=== PATIENT | male | born 1990 | race Caucasian/White ===

== ENCOUNTER 2016-06-07 19:49 | Emergency (ER) | payer OTHER, BC ==
[~2016-06-07] VITALS: Ht 170.2 cm; Wt 57.0 kg
[2016-06-07 19:53] VITALS: Ht 170.2 cm; Wt 57.0 kg
[2016-06-07] MEDS ORDERED: SOD CHLORIDE 0.9% 1,000 ML IV STA (19:54)
[2016-06-07 20:10] VITALS: TEMP 98.2
[2016-06-07 20:41] LABS: BASOPHIL # 0.1 10^3/ul (0.0-0.1); BASOPHILS % 0.3 % (0.0-2.0); EOSINOPHILS # 0.1 10^3/ul (0.0-0.5); EOSINOPHILS % 0.5 % (0.0-7.0); HEMATOCRIT 48.8 % (42.0-52.0); HEMOGLOBIN 16.7 g/dl (14.0-18.0); LYMPHOCYTES # 2.8 10^3/ul (0.8-2.9); MEAN CORPUSCULAR HEMOGLOBIN 32.8 pg (29.0-33.0); MEAN CORPUSCULAR HGB CONC 34.2 g/dl (32.0-37.0); MEAN CORPUSCULAR VOLUME 95.9 fl (82.0-101.0); MEAN PLATELET VOLUME 8.3 fl (7.4-10.4); MONOCYTE # 0.7 10^3/ul (0.3-0.9); MONOCYTES % 4.9 % (0.0-11.0); NEUTROPHIL # 11.1 10^3/ul (1.6-7.5); NEUTROPHILS % 75.3 % (39.0-77.0); PLATELET COUNT 281 10^3/UL (140-440); RED BLOOD COUNT 5.09 10^6/ul (4.70-6.10); RED CELL DISTRIBUTION WIDTH 12.8 % (11.5-14.5); UNCORRECTED WBC 14.8 10^3/ul (4.8-10.8); WHITE BLOOD COUNT 14.8 10^3/ul (4.8-10.8)
[2016-06-07 20:46] LABS: CONDITION 1
[2016-06-07 20:50] LABS: ALBUMIN 4.5 g/dl (3.3-4.9); CHLORIDE 103 mmol/L (97-110)
[2016-06-07 20:51] LABS: INR 0.98; POTASSIUM 4.1 mmol/L (3.5-5.1); SODIUM 147 mmol/L (135-144)
[2016-06-07 20:52] LABS: CREATININE 0.78 mg/dl (0.61-1.24); PARTIAL THROMBOPLASTIN TIME 27.6 Sec (25.0-35.0)
[2016-06-07 20:53] LABS: ALANINE AMINOTRANSFERASE 25 IU/L (13-69); ALBUMIN/GLOBULIN RATIO 1.45; ALKALINE PHOSPHATASE 84 IU/L (42-121); ANION GAP 20 (8-16); ASPARTATE AMINO TRANSFERASE 34 IU/L (15-46); BILIRUBIN,INDIRECT 0.8 mg/dl (0-1.1); BILIRUBIN,TOTAL 0.8 mg/dl (0.2-1.3); BLOOD UREA NITROGEN 10 mg/dl (7-20); CALCIUM 9.2 mg/dl (8.4-10.2); CARBON DIOXIDE 28 mmol/L (21-31); GLUCOSE 85 mg/dl (70-220); TOTAL PROTEIN 7.6 g/dl (6.1-8.1)
[2016-06-07 20:54] LABS: SALICYLATE < 1.0 mg/dl (5.0-30.0)
[2016-06-07 20:55] LABS: ACETAMINOPHEN < 10.0 ug/ml (10.0-30.0)
--- NOTE | 2016-06-07 21:29 | ERD ---
ER Documentation Chief Complaint Date/Time DATE: 06/07/16 TIME: 21:21 Chief Complaint bib ra s/p found passed out in parked car, a&o x 1-2, +marijuana, etoh HPI This is a 25-year-old male with no past medical history that was found by bystanders sleeping behind a vehicle. EMS stated there is no signs of trauma or drug paraphernalia. The patient stated he had smoked marijuana but denies any other illicit drug use. He did state he had been drinking with friends throughout the day. The patient states he has no recollection of how he ended up behind the parked vehicle. He is denying a headache. He has no nausea vomiting or abdominal pain. He denies any chest pain or pressure at this time. He has no shortness of breath. ROS All systems reviewed and are negative except as per history of present illness. Medications Home Meds No Active Prescriptions or Reported Meds Allergies Allergies: Coded Allergies: azithromycin (Verified Allergy, Unknown, 06/07/16) PMhx/Soc Medical and Surgical Hx: pt denies Medical Hx, pt denies Surgical Hx Hx Alcohol Use: Yes Hx Substance Use: Yes Smoking Status: Unknown if ever smoked Physical Exam Vitals Vital Signs Date Time Temp Pulse Resp B/P Pulse Ox O2 Delivery O2 Flow Rate FiO2 06/07/16 20:10 98.2 89 17 132/78 98 06/07/16 19:53 97.9 98 17 132/78 98 Physical Exam Constitutional:Well-developed. Well-nourished. HEENT:Normocephalic. Atraumatic.Pupils were 3 mm equal round reactive to light. Moist mucous membranes.No tonsillar exudates. No nasoseptal hematoma. No hemotympanum. Neck: No nuchal rigidity. No lymphadenopathy. No posterior cervical spine tenderness or step-offs. Respiratory: Not using accessory muscles of respiration.Lungs were clear to auscultation bilaterally. No rhonchi. No rales. No wheezing. Cardiovascular: Regular rate regular rhythm.No murmurs. No rubs were appreciated.S1, S2 normal. Distal pulses are palpable 2+ bilaterally. GI: Abdomen was soft. Nontender. Non Distended. No pulsatile abdominal masses or bruits. No rebound. No guarding. Bowel sounds were present and normal. Muscle skeletal: Full range of motion of both the upper and lower extremities bilaterally.Normal muscle tone.No assymetrical calf tenderness or swelling. Skin: No petechia, no purpura. No lesions on the palms or the soles of the feet. No maculopapular rash. NEURO: Patient was alert, awake, orientated x3. Patient did not smell of alcohol. He was able to ambulate with no ataxia. He was drowsy but easily arousable. Result Diagram: 06/07/16201206/07/162012 Results 24 hrs Laboratory Tests Test 06/07/16 20:13 Acetaminophen Level < 10.0ug/ml Activated Partial Thromboplast Time 27.6Sec Alanine Aminotransferase (ALT/SGPT) 25IU/L Albumin 4.5g/dl Albumin/Globulin Ratio 1.45 Alkaline Phosphatase 84IU/L Anion Gap 20 Aspartate Amino Transf (AST/SGOT) 34IU/L Basophils # 0.110^3/ul Basophils % 0.3% Blood Urea Nitrogen 10mg/dl Calcium Level 9.2mg/dl Carbon Dioxide Level 28mmol/L Chloride Level 103mmol/L Creatinine 0.78mg/dl Direct Bilirubin 0.00mg/dl Eosinophils # 0.110^3/ul Eosinophils % 0.5% Ethyl Alcohol Level 260.0mg/dl Globulin 3.10g/dl Glucose Level 85mg/dl Hematocrit 48.8% Hemoglobin 16.7g/dl INR International Normalized Ratio 0.98 Indirect Bilirubin 0.8mg/dl Lymphocytes # 2.810^3/ul Lymphocytes % 19.0% Mean Corpuscular Hemoglobin 32.8pg Mean Corpuscular Hemoglobin Concent 34.2g/dl Mean Corpuscular Volume 95.9fl Mean Platelet Volume 8.3fl Monocytes # 0.710^3/ul Monocytes % 4.9% Neutrophils # 11.110^3/ul Neutrophils % 75.3% Nucleated Red Blood Cells # 0.010^3/ul Nucleated Red Blood Cells % 0.0/100WBC Platelet Count 03612^3/UL Potassium Level 4.1mmol/L Prothrombin Time 13.0Sec Prothrombin Time Ratio 1.0 Red Blood Count 5.0910^6/ul Red Cell Distribution Width 12.8% Salicylates Level < 1.0mg/dl Sodium Level 147mmol/L Total Bilirubin 0.8mg/dl Total Protein 7.6g/dl White Blood Count 14.810^3/ul Current Medications Medications (Trade) Dose Ordered Sig/Gustavo Route PRN Reason Start Time Stop Time Status Last Admin Dose Admin Sodium Chloride (NS) 1,000 ml @ 1,000 mls/hr Q1H STAT IV 06/07/16 19:54 06/07/16 20:53 DC 06/07/16 20:37 Procedures/MDM The patient presented to the emergency department with an acute and persistent change in their mental status. The differential diagnosis is diverse however reversible causes such as hypoglycemia, opiate overdose, thiamine deficiency were immediately considered. The patient was placed on a grade recorder, continuous pulse oximetry and IV access was established. The patients airway was secure however hypoxic events such as anemia, shock, or severe pulmonary disease were all considered as etiologies in this patients presentation. Circulation assessed with good cap refill and did not require fluids or pressure support. Finger stick for rapid glucose determined to be normal. The patient received a CT scan of his head and there was no evidence of intracerebral hemorrhage mass-effect or midline shift. The patient was given a liter bolus of 0.9 normal saline while in the emergency department Observation Note: Time: 4 hours Family Hx: No Hypertension Evaluation: Multiple exams showed improving symptoms and no evidence of impending delirium tremors. Serum ethanol was elevated upon arrival 12 Lead EKG tracing ordered and reviewed by myself showed: Normal sinus rhythm of 74 bpm and no arrhythmia. IL interval normal. QRS duration normal. No ST segment elevation No ST segment depression. No changes consistent with acute ischemia. I did feel that the patient was comfortable to be discharged home after he been treated with banana bag in the emergency department. I did feel his symptoms and drowsiness was a result of toxic encephalopathy which had resolved once he was clinically sober Departure Diagnosis: Primary Impression: Toxic encephalopathy Additional Impression: Alcohol abuse with intoxication Condition: Serious MARBIN ROSS Jun 07, 2016 21:29
[2016-06-07 22:25] LABS: ADD UMIC YES; URINE BILIRUBIN (Dip) NEGATIVE (NEGATIVE); URINE BLOOD (Dip) 2+ (NEGATIVE); URINE COLOR LT. YELLOW (YELLOW); URINE GLUCOSE (Dip) NEGATIVE (NEGATIVE); URINE KETONES (Dip) TRACE (NEGATIVE); URINE LEUKOCYTE ESTERASE (Dip) NEGATIVE (NEGATIVE); URINE NITRITE (Dip) NEGATIVE (NEGATIVE); URINE TOTAL PROTEIN (Dip) NEGATIVE (NEGATIVE); URINE UROBILINOGEN (Dip) 0.2 E.U./dL (0.1-1.0)
--- NOTE | 2016-06-07 22:32 | RADRPT ---
PROCEDURE: CT brain without contrast CLINICAL INDICATION: Altered mental status TECHNIQUE: A CT of the brain was performed utilizing axial sections from the skull base through th e vertex without contrast. Sagittal and coronal images were also reformatted. The exam CTDIvol = 45. 01 mGy and DLP = 810.25 mGy-cm. COMPARISON: None available FINDINGS: No acute intracranial hemorrhage is identified. There is no mass effect or midline shift. No extra -axial fluid collection is seen. The ventricles and sulci are within normal limits for size and con figuration. The density of the brain is within normal limits. Faith-white differentiation is preser remi. The osseous structures are unremarkable. The mastoid air cells and visualized paranasal sinuses are clear. RPTAT:HJJR IMPRESSION: Unremarkable noncontrast CT of the brain. Physician Kurtis Date Time Electronically viewed and signed by Physician Kurtis on 06/07/2016 22:32 /
[2016-06-07 22:38] LABS: BARBITURATES Negative (NEGATIVE); BENZODIAZEPINES Negative (NEGATIVE)
[2016-06-07 22:39] LABS: COCAINE Negative (NEGATIVE)
[2016-06-07 22:41] LABS: OPIATES Negative (NEGATIVE)
[2016-06-07 22:59] LABS: URINE RBCS 0-2 /HPF (0)
[2016-06-07 23:20] LABS: CANNABINOIDS Positive (NEGATIVE)
[2016-06-08 01:12] VITALS: BP 143/90; PULSE 92; RESP 19
== END 2016-06-08 01:15 | disposition home or self-care (01) ==
LOC: E/R 19:49
DX: F10.229 Alcohol dependence with intoxication, unspecified (principal); G92 Toxic encephalopathy; T51.0X1A Toxic effect of ethanol, accidental (unintentional), initial encounter; R40.2142 Coma scale, eyes open, spontaneous, at arrival to emergency department; R40.2242 Coma scale, best verbal response, confused conversation, at arrival to emergency department; R40.2362 Coma scale, best motor response, obeys commands, at arrival to emergency department
CPT/HCPCS: 70450; 80053; 80306; 80307; 81001; 85025; 85610; 85730; 93005; 99285; J7030; 81003